=== PATIENT | female | born 1980 | race Caucasian/White ===

== ENCOUNTER 2024-06-28 12:18 | Emergency (ER) | payer BC ==
[~2024-06-28] VITALS: Ht 152.4 cm; Wt 53.5 kg
[2024-06-28 12:28] VITALS: O2SAT 98
== END 2024-06-28 14:39 | disposition left against medical advice (07) ==
LOC: ER 12:18
DX: R50.9 Fever, unspecified (principal); H92.09 Otalgia, unspecified ear; Z53.21 Procedure and treatment not carried out due to patient leaving prior to being seen by health care provider
CPT/HCPCS: A4606; A4663